=== PATIENT | male | born 1995 | race African-American/Black ===

== ENCOUNTER 2021-06-10 04:52 | Emergency (ER) | payer SELFPAY ==
[2021-06-10] MEDS ORDERED: Acetaminophen 500 MG Tab PO ONE (05:49)
== END 2021-06-10 07:00 | disposition home or self-care (01) ==
LOC: MW.ED 04:52
DX: U07.1 COVID-19 (principal)
CPT/HCPCS: 87635; 99284; A9270; U0002

== ENCOUNTER 2022-07-14 16:01 | Emergency (ER) | payer SELFPAY ==
[2022-07-14] MEDS ORDERED: Acetaminophen 325 MG Tab PO ONE (17:28)
[2022-07-14] MEDS ORDERED: predniSONE 20 MG Tab PO ONE (17:28)
[2022-07-14] MEDS ORDERED: Ibuprofen 600 MG Tab PO ONE (17:28)
== END 2022-07-14 19:07 | disposition home or self-care (01) ==
LOC: MW.ED 16:01
DX: B27.90 Infectious mononucleosis, unspecified without complication (principal)
CPT/HCPCS: 36415; 86308; 87651; 99283; A9270

== ENCOUNTER 2024-03-12 16:10 | Emergency (ER) | payer OTHER, MEDICAID ==
[2024-03-12] MEDS ORDERED: Sodium Chloride 0.9% 2.5 ML Syringe FLUSH PRN (16:19)
[2024-03-12] MEDS ORDERED: Sodium Chloride 0.9% 10 ML Syringe FLUSH PRN (16:19)
[2024-03-12 16:24] LABS: BASOPHILS ABSOLUTE AUTO 0.03 K/uL (0.00-0.20); BASOPHILS PERCENT AUTO 0.5 % (0.0-1.0); EOSINOPHILS ABSOLUTE AUTO 0.04 K/uL (0.00-0.45); EOSINOPHILS PERCENT AUTO 0.6 % (0.0-6.0); HEMATOCRIT 48.4 % (42.0-52.0); HEMOGLOBIN 16.4 g/dL (14.0-18.0); IMMATURE GRAN ABSOLUTE AUTO 0.01 K/uL (0.00-0.05); IMMATURE GRAN PERCENT AUTO 0.2 % (0.0-0.4); LYMPHOCYTES ABSOLUTE AUTO 2.05 K/uL (1.00-4.80); LYMPHOCYTES PERCENT AUTO 33.2 % (24.0-44.0); MEAN CORPUSCULAR HEMOGLOBIN 28.4 pg (28.0-32.0); MEAN CORPUSCULAR HGB CONC 33.9 g/dL (32.0-36.0); MEAN CORPUSCULAR VOLUME 83.7 fL (83.0-99.0); MEAN PLATELET VOLUME 8.4 fL (9.4-12.4); MONOCYTES ABSOLUTE AUTO 0.34 K/uL (0.00-0.80); MONOCYTES PERCENT AUTO 5.5 % (0.0-8.0); NEUTROPHILS ABSOLUTE AUTO 3.71 K/uL (1.80-7.70); PLATELET COUNT,PLT 292 K/uL (150-400); RED BLOOD CELL COUNT 5.78 M/uL (4.52-5.90); WHITE BLOOD CELL COUNT,WBC 6.18 K/uL (3.9-11.3)
[2024-03-12 16:37] LABS: INR 1.05 (0.86-1.11)
[2024-03-12 16:48] LABS: A/G RATIO 0.9 (0.9-1.6); ALANINE AMINOTRANSFERASE,ALT 29 IU/L (14-63); ALKALINE PHOSPHATASE 104 U/L (46-116); ASPARTATE AMNIOTRANSFERASE,AST 17 IU/L (15-37); BILIRUBIN TOTAL 0.6 mg/dL (0.2-1.0); BLOOD UREA NITROGEN,BUN 13 mg/dL (7.0-18.0); CALCIUM 9.5 mg/dL (8.5-10.1); CARBON DIOXIDE,CO2 28.9 mmol/L (21.0-32.0); CHLORIDE,CL 103 mmol/L (98-107); CREATININE 1.2 mg/dL (0.8-1.3); GLUCOSE RANDOM 106 mg/dL (74-106); POTASSIUM,K 3.8 mmol/L (3.5-5.1); PROTEIN TOTAL,TP 8.4 g/dL (6.4-8.2); SODIUM,NA 140 mmol/L (136-148)
[2024-03-12 16:50] LABS: ESTIMATED GFR 84 mL/min (>60)
[2024-03-12] MEDS: Iopamidol 755 MG/ML 500 ML Multipack Bottle IVPUSH STA (16:58)
[2024-03-12] MEDS: Acetaminophen/HYDROcodone 325-5 MG Tab PO ONE (19:08)
[2024-03-12 19:19] LABS: APPEARANCE,URINE CLEAR; BILIRUBIN,URINE NEGATIVE (NEGATIVE); COLOR,URINE YELLOW; GLUCOSE,URINE NEGATIVE (NEGATIVE); KETONES,URINE NEGATIVE (NEGATIVE); LEUKOCYTE ESTERASE,URINE NEGATIVE (NEGATIVE); NITRITE,URINE NEGATIVE (NEGATIVE); OCCULT BLOOD,URINE NEGATIVE (NEGATIVE); PROTEIN,URINE NEGATIVE (NEGATIVE)
== END 2024-03-13 00:50 | disposition home or self-care (01) ==
LOC: MW.ED 16:10
DX: S06.5XAA Traumatic subdural hemorrhage with loss of consciousness status unknown, initial encounter (principal); V89.9XXA Person injured in unspecified vehicle accident, initial encounter
CPT/HCPCS: 36415; 70450; 71045; 71260; 72125; 72128; 72131; 74177; 80053; 81003; 85025; 85610; 99284; A9270; Q9967

== ENCOUNTER 2024-03-18 17:49 | Emergency (ER) | payer OTHER, MEDICAID ==
[2024-03-18] MEDS: traMADol 50 MG Tab PO STA (19:07)
[2024-03-18] MEDS: Methocarbamol 750 MG Tab PO STA (19:07)
[2024-03-18] MEDS: Ketorolac 30 MG/ML SDV IM STA (19:08)
[2024-03-18] MEDS: Dexamethasone 4 MG Tab PO STA (19:08)
== END 2024-03-18 20:08 | disposition home or self-care (01) ==
LOC: MW.ED 17:49
DX: M54.42 Lumbago with sciatica, left side (principal); Z75.8 Other problems related to medical facilities and other health care
CPT/HCPCS: 96372; 99283; A9270; J1885; J8540

== ENCOUNTER 2025-02-28 14:42 | Emergency (ER) | payer MEDICAID, OTHER ==
[2025-02-28] MEDS: Ketorolac 30 MG/ML SDV IVPUSH ONE (15:00)
[2025-02-28 15:10] LABS: BASOPHILS ABSOLUTE AUTO 0.03 K/uL (0.00-0.20); BASOPHILS PERCENT AUTO 0.4 % (0.0-1.0); EOSINOPHILS ABSOLUTE AUTO 0.12 K/uL (0.00-0.45); EOSINOPHILS PERCENT AUTO 1.6 % (0.0-6.0); IMMATURE GRAN ABSOLUTE AUTO 0.01 K/uL (0.00-0.05); IMMATURE GRAN PERCENT AUTO 0.1 % (0.0-0.4); LYMPHOCYTES ABSOLUTE AUTO 2.22 K/uL (1.00-4.80); LYMPHOCYTES PERCENT AUTO 29.4 % (24.0-44.0); MEAN PLATELET VOLUME 8.5 fL (9.4-12.4); MONOCYTES ABSOLUTE AUTO 0.96 K/uL (0.00-0.80); MONOCYTES PERCENT AUTO 12.7 % (0.0-8.0); NEUTROPHILS ABSOLUTE AUTO 4.22 K/uL (1.80-7.70); NEUTROPHILS PERCENT AUTO 55.8 % (41.0-71.0); NRBC ABSOLUTE 0.00 K/uL (0.00-0.02); NRBC PERCENT 0.0 /100WBC (0.0-0.2); PLATELET COUNT,PLT 273 K/uL (150-400); RED BLOOD CELL COUNT 5.28 M/uL (4.52-5.90); WHITE BLOOD CELL COUNT,WBC 7.56 K/uL (3.9-11.3)
[2025-02-28 15:24] LABS: INR 1.05 (0.86-1.11)
[2025-02-28 15:40] LABS: A/G RATIO 0.9 (0.9-1.6); ALANINE AMINOTRANSFERASE,ALT 27.0 IU/L (14-63); ASPARTATE AMNIOTRANSFERASE,AST 20.0 IU/L (15-37); BILIRUBIN TOTAL 0.7 mg/dL (0.2-1.0); BLOOD UREA NITROGEN,BUN 9.0 mg/dL (7.0-18.0); CARBON DIOXIDE,CO2 26.2 mmol/L (21.0-32.0); CHLORIDE,CL 103.0 mmol/L (98-107); CREATININE 1.1 mg/dL (0.8-1.3); EST CRCL DRUG DOSING (CG) 102.31 mL/min; ESTIMATED GFR 93.0 mL/min (>60); GLUCOSE RANDOM 93.0 mg/dL (74-106); POTASSIUM,K 4.0 mmol/L (3.5-5.1); PRO B-TYPE NATRIUR PEPT,BNPPRO 21.0 pg/mL (0-125); PROTEIN TOTAL,TP 7.8 g/dL (6.4-8.2); SODIUM,NA 140.0 mmol/L (136-148)
[2025-02-28] MEDS: Iopamidol 755 Mg/ML 100 ML Bottle IVPUSH ONE (17:10)
== END 2025-02-28 20:01 | disposition home or self-care (01) ==
LOC: MW.ED 14:42
DX: I26.99 Other pulmonary embolism without acute cor pulmonale (principal); F17.200 Nicotine dependence, unspecified, uncomplicated; Z79.01 Long term (current) use of anticoagulants; Z79.899 Other long term (current) drug therapy
CPT/HCPCS: 36415; 71045; 71275; 80053; 83880; 84484; 85025; 85610; 87428; 93005; 96374; 96375; 99285; A9270; J1885; J2270; J7030; Q9967; 93010; 99284